=== PATIENT | male | born 1970 | race Caucasian/White ===

== ENCOUNTER 2017-06-23 08:47 | Observation (INO) | payer BC, OTHER, SELFPAY ==
[2017-06-23 09:25] LABS: #Basophils 0.1 thou/uL (0.0-0.2); #Eosinphils 0.3 thou/uL (0.0-0.7); #Monocytes 0.5 thou/uL (0.11-0.59); #Neutrophils 4.7 thou/uL (1.40-6.50); %Basophils 0.7 % (0.0-1.0); %Eosinophils 3.9 % (0.0-10.0); %Lymphocytes 26.1 % (21.0-51.0); %Monocytes 6.9 % (0.0-10.0); Mean Platelet Volume 8.2 fL (7.4-10.4); Red Blood Cell (RBC) Count 5.56 mill/uL (4.70-6.10); White Blood Cell (WBC) Count 7.5 thou/uL (4.8-10.8)
[2017-06-23 09:30] LABS: PTT 26.6 SEC (22.9-36.1); Prothrombin Time 12.9 SEC (12.0-14.7)
[2017-06-23 09:39] LABS: ALT (SGPT) 35 U/L (8-55); AST (SGOT) 21 U/L (5-34); Acetaminophen Less than 6.0 mcg/mL (10.0-30.0); Alkaline Phosphatase 67 U/L (40-150); Anion Gap 14 mmol/L (10-20); BUN (Urea Nitrogen) 14 mg/dL (8.9-20.6); Bilirubin, Total 0.6 mg/dL (0.2-1.2); Calc. Creatinine Clearance 0 mL/min (70-130); Calcium 9.7 mg/dL (7.8-10.44); Carbon Dioxide 27 mmol/L (22-29); Chloride 102 mmol/L (98-107); Estimated GFR-MDRD 72; Globulin 3.1 g/dL (2.4-3.5); Lipase 42 U/L (8-78); Protein, Total 7.2 g/dL (6.0-8.3); Salicylate Less than 8.0 mg/dL (15.0-30.0)
[2017-06-23 09:40] LABS: Troponin I Less than 0.010 ng/mL (< 0.028)
[2017-06-23 09:51] LABS: Bilirubin Negative (Negative); Blood, Urine Trace (Negative); Glucose, Urine (Dipstick) Negative (Negative); Ketone, Urine Negative (Negative); Nitrite Negative (Negative); Protein, Urine (Dipstick) Negative (Neg-Trace); Urobilinogen 0.2 mg/dL (0.2-1.0)
--- NOTE | 2017-06-23 09:54 | CT ---
CT HEAD WITHOUT CONTRAST: Technique: Multiple axial tomograms were obtained through the head without IV enhancement. History: Weakness and difficulty walking x two days. Comparison: Head CT 08-06-10. FINDINGS: Ventricles have normal size and position. No evidence of mass, infarct, or hemorrhage. Mild mucosal edema in the paranasal sinuses. IMPRESSION: No acute intracranial abnormality. POS: [facility]
[2017-06-23 10:00] LABS: Bacteria/HPF None Seen HPF (None Seen); RBC/HPF 0-3 HPF (0-3); Squamous Epithelial None Seen HPF (0-3); WBC/HPF None Seen HPF (0-3)
[2017-06-23 10:03] LABS: Amphetamine Not Detected (NotDetected); Methadone Not Detected (NotDetected); Methamphetamine Not Detected (NotDetected)
[2017-06-23 14:28] VITALS: BMI 34.5
[2017-06-23] MEDS ORDERED: Acetaminophen 325 MG TAB PO PRN (14:45)
[2017-06-23] MEDS ORDERED: Ondansetron ODT 4 MG TAB PO PRN (14:45)
[2017-06-23] MEDS ORDERED: Diabetic Tussin 200 MG/10 ML UDCUP PO PRN (14:45)
[2017-06-23] MEDS ORDERED: Senokot 8.6 MG TAB PO PRN (14:45)
[2017-06-23] MEDS ORDERED: Ondansetron HCl/PF 4 MG/2 ML Vial IVP PRN (14:45)
[2017-06-23] MEDS ORDERED: Sodium Chloride 0.65% Nasal 44 ML BOT EA NARE PRN (14:45)
[2017-06-23] MEDS ORDERED: Loperamide HCl 2 MG CAP PO PRN (14:45)
[2017-06-23] MEDS ORDERED: Loratadine 10 MG TAB PO PRN (14:45)
[2017-06-23] MEDS ORDERED: HYDROcodone/Acetaminophen 5/325 mg Tablet PO PRN (14:45)
[2017-06-23] MEDS ORDERED: Milk Of Magnesia 30 ML UDCUP PO PRN (14:45)
[2017-06-23] MEDS ORDERED: Mag-Al 1200 mg/1200 mg/30 ML UDCUP PO PRN (14:45)
[2017-06-23] MEDS ORDERED: Zolpidem Tartrate 5 MG TAB PO PRN (14:45)
[2017-06-23] MEDS ORDERED: Eucerin (Mineral Oil/Petrolatum,White) 30 gm Jar TOP PRN (14:45)
[2017-06-23] MEDS ORDERED: Fioricet 325/50/40 mg Tablet PO PRN (14:46)
--- NOTE | 2017-06-23 15:07 | HP ---
PRIMARY CARE PHYSICIAN: Michael Comer M.D. REASON FOR ADMISSION: Generalized weakness. HISTORY OF PRESENT ILLNESS: A 46-year-old male who has underlying history of dyslipidemia as well a s anxiety disorder who came to the emergency room at [facility] for evaluation of his generaliz ed weakness. Patient reports that all symptoms started Thursday, patient was feeling extrem avril exhausted. He took a nap Thursday and when he was waking up on Thursday evening, he was f eeling fatigued, he was not feeling normal. He was having unsteadiness. He was having slurred spee ch and he was incoherent, all of these symptoms were kept going on Thursday as well without any improv ement. Patient was not feeling normal and family member also noticed that something was going on. This morning, the patient was given more incoherent. The patient was not knowing what he was doing and he was not knowing what is going on as well. He also did not have any clue about Thursday afterno on and Thursday during daytime. He was not able to focus, so his symptoms were pretty much very vague and bizarre. With these symptoms, he presented to [facility] where they did a CT brain and it was normal. Subsequently, they transferred him to our hospital for further evaluation. REVIEW OF SYSTEMS: The following complete review of systems was negative, unless otherwise mentione d in the HPI or below: Constitutional: Weight loss or gain, ability to conduct usual activities. Skin: Rash, itching. Eyes: Double vision, pain. ENT/Mouth: Nose bleeding, neck stiffness, pain, tenderness. Cardiovascular: Palpitations, dyspnea on exertion, orthopnea. Respiratory: Shortness of breath, wheezing, cough, hemoptysis, fever or night sweats. Gastrointestinal: Poor appetite, abdominal pain, heartburn, nausea, vomiting, constipation, or diar rony. Genitourinary: Urgency, frequency, dysuria, nocturia. Musculoskeletal: Pain, swelling. Neurologic/Psychiatric: Anxiety, depression. Allergy/Immunologic: Skin rash, bleeding tendency. All other review of systems reviewed and negative except as mentioned in the HPI. PAST MEDICAL HISTORY: Fregoso's palsy and dyslipidemia. PAST SURGICAL HISTORY: Appendicectomy and rotator cuff repair. PAST PSYCHIATRIC HISTORY: Anxiety disorder. SOCIAL HISTORY: Patient drinks alcohol occasionally. He denies any smoking. He denies any illicit drug abuse. FAMILY HISTORY: No strong family history of premature coronary artery disease, stroke or cancer. ALLERGIES: No known drug allergies. CURRENT HOME MEDICATIONS: Lipitor 10 mg p.o. daily, Fioricet one tablet as needed, Xanax 1 mg p.o. at bedtime. EMERGENCY ROOM COURSE: Patient is given aspirin. PHYSICAL EXAMINATION: VITAL SIGNS: On arrival, blood pressure 137/96, pulse 75, respiratory rate 20, temperature 98.1, sa turation 100% on room air, weight 108.8 kilograms. GENERAL: Patient is currently alert, awake, no obvious acute distress. HEAD: Normocephalic, atraumatic. EYES: Pupils round, reactive to light. Extraocular muscles, seems like conjugate gaze palsy on the left side. ENT: Oropharynx within normal limits. Moist mucous membranes. No oral lesions. No pharyngeal jenny thema, no exudate. NECK: Supple. Range of motion is normal. No meningeal signs of irritation. LUNGS: Clear to auscultation without any rhonchi or rales. CARDIAC: S1, S2, regular without any murmur. ABDOMEN: Soft, bowel sounds present, nontender, nondistended. No organomegaly, no mass, no suprapu bic tenderness. BACK: Examination unremarkable, no CVA tenderness. EXTREMITIES: Upper extremity passive movements of all joints are normal. Lower extremity passive m ovements of all joints are normal. NEUROLOGIC: The patient is alert and oriented x3. Speech, normal. Motor 5/5 in all four limbs. S ensation bilaterally symmetrical. No cerebellar sign. No nystagmus. The patient is not able to mo ve his eyeball on the left side on both eyes. SKIN: No skin rash. PSYCHIATRIC: Normal affect. IMAGING AND LABORATORY DATA: EKG based on my review reveals normal sinus rhythm without any ischemi c changes. CT brain based on my review, no acute intracranial process. CBC: WBC 7.5, hemoglobin 1 6.4, platelet 247. INR 1.0. BMP: Sodium 139, potassium 4.0, chloride 102, carbon dioxide 27, BUN 14, creatinine 1.10, glucose 107, calcium 9.7. LFT: AST 21, ALT 35, alkaline phosphatase 67, album in 4.1. Cardiac enzymes negative. Ammonia 29. TSH 1.75. Urinalysis normal. Urine drug screen po sitive for barbiturates. Serum drug screen negative. ASSESSMENT AND PLAN/IMPRESSION: 1. Conjugate gaze palsy. 2. Dyslipidemia. 3. Generalized weakness. 4. Anxiety disorder. 5. History of Fregoso's palsy. 6. Obesity. 7. Migraine headache. 8. Deep venous thrombosis prophylaxis, not needed. 9. Gastrointestinal prophylaxis, Pepcid 20 mg p.o. b.i.d. PLAN: Observation to stroke floor, neuro check q.4 hourly. Neurology consult. MRI brain with contr ast, check lipid profile, homocysteine tomorrow. At this point, I am thinking that this patient mos t likely has underlying somatization and psychosomatic symptoms. Does not look like any clearcut ne urological event. We will obtain official opinion from Neurology. We will also consult PT, OT eval uation while in hospital as well. CODE STATUS: The patient is FULL CODE. The patient's is surrogate decision maker. Plan of ca re discussed with the patient and his at bedside.
[2017-06-23] MEDS ORDERED: Dexamethasone 4 mg/ml Vial SLOW IVP SCH (17:45)
[2017-06-23] MEDS ORDERED: Ketorolac Tromethamine 30 MG/ML VIAL IVP SCH (17:45)
[2017-06-23] MEDS ORDERED: Valproate Sodium 1,000 MG in Sodium Chloride 0.9% 100 ML IVPB SCH (18:00)
[2017-06-23] MEDS: Famotidine 20 MG TAB PO SCH (21:37)
--- NOTE | 2017-06-24 02:06 | CON ---
DATE OF CONSULTATION: 06/23/2017 CONSULTING PHYSICIAN: Hospitalist Service. IMPRESSION: Probable confusional migraine. PLAN: 1. MRI of the brain. 2. Migraine protocol. Mr. Mercado is a 46-year-old man with past history of migraine headaches. He had recent sinus surgery last week. On Thursday, he developed a headache and had a bit of confusion. On Thursday, the headach e continued and primarily the frontal head region. He continued to have some degree of confusion wi th some trouble remembering things that took place. He felt a bit unsteady on his feet. There was no lateralized weakness or numbness reported. The same symptoms continued on Thursday and he tried so me Fioricet for the pain, it did not get much relief. Today, he continued to have similar symptoms and decided to come in for an evaluation. He had unremarkable lab workup other than his drug screen showing positive for barbiturates due to his medication. No imaging has been done at this point. PAST MEDICAL HISTORY: As listed above. ALLERGIES: None reported. SOCIAL HISTORY: No illicit drug use. FAMILY HISTORY: Noncontributory. REVIEW OF SYSTEMS: Otherwise, negative. PHYSICAL EXAMINATION: GENERAL: He is a well-nourished middle-aged man, in no acute distress. HEENT: Pupils are equal and reactive. Conjunctivae clear. Oropharynx clear. NECK: Supple. EXTREMITIES: No cyanosis, clubbing or edema. NEUROLOGIC: He is alert and appropriate. His speech is fluent and clear. Cranial nerves were inta ct other than he could not volitionally look to the left or upward. Doll's head maneuver produced a conjugate leftward gaze. His motor exam showed symmetric strength in the extremities. There was n o tremor or dysmetria present. Sensation was intact to touch. Plantar responses were downgoing. G ait was not tested. No abnormal movements were seen. SUMMARY: This is a middle-aged man with ongoing headache with some variable confusion and unsteadin ess and a very atypical ophthalmalogic exam with a supranuclear gaze palsy. I suspect this can be m igraine in origin.
[2017-06-24] MEDS: Fioricet 325/50/40 mg Tablet PO PRN ×2 (03:17→10:16)
--- NOTE | 2017-06-24 07:15 | PDOC.PN ---
- Subjective Encounter Start Date: 06/24/17 Encounter Start Time: 07:13 Subjective: Generalized weakness -: No speech difficulty -: HALL stable - Objective Resuscitation Status: Resuscitation Status FULL:Full Resuscitation MAR Reviewed: Yes Vital Signs & Weight: Vital Signs (12 hours) Temp Pulse Resp BP Pulse Ox 06/24/17 04:00 61 H 118/67 06/24/17 00:00 98.1 F 74 18 116/63 94 L 06/23/17 20:00 98.4 F 74 18 127/82 95 Weight Weight 255 lb I&O: 06/23/17 06/24/17 06/25/17 06:59 06:59 06:59 Intake Total 908 Balance 908 Result Diagrams: 06/23/17 09:16 06/23/17 09:16 Phys Exam - Physical Examination Constitutional: NAD HEENT: moist MMs, sclera anicteric Neck: no nodes, no JVD Respiratory: no wheezing, no rales, no rhonchi, clear to auscultation bilateral Cardiovascular: RRR, no significant murmur Gastrointestinal: soft, non-tender, positive bowel sounds Musculoskeletal: no edema, pulses present Psychiatric: normal affect Skin: no rash, normal turgor Dx/Plan (1) Gaze palsy Code(s): H51.0 - PALSY (SPASM) OF CONJUGATE GAZE Status: Acute (2) Head ache Code(s): R51 - HEADACHE Status: Acute (3) Slurred speech Code(s): R47.81 - SLURRED SPEECH Status: Acute - Plan * Possible Migraine (supranuclear gaze palsy and HALL): CT brain: no acute issue, appreciate neuro input, f/u MRI, PT/OT, LDL 173 * check labs in AM
[2017-06-24] MEDS ORDERED: Polyethylene Glycol 3350 17 GM Packet PO SCH (09:00)
[2017-06-24] MEDS ORDERED: Atorvastatin Calcium 10 MG TAB PO SCH (09:00)
[2017-06-24] MEDS: Famotidine 20 MG TAB PO SCH (09:01)
--- NOTE | 2017-06-24 09:45 | MRI ---
BRAIN MRI WITH AND WITHOUT CONTRAST: Indications: Gaze palsy. Comparison: Head CT previous day. FINDINGS: The ventricular system is normal in size. There is no acute territory infarction, intracranial mass effect, or midline shift. No significant signal abnormalities of the brain parenchyma or evidence of pathologic intraaxial enhancement. There is prominent, scattered paranasal sinus mucosal inflammato ry thickening and retention cyst formation. IMPRESSION: No acute intracranial abnormalities. If there remain symptoms referable to the intraorbital contents, consider dedicated MRI of orbits fo r further assessment if clinically indicated. POS: [facility]
[2017-06-24 12:12] VITALS: TEMP 97.7
[2017-06-24 14:51] VITALS: BP 124/83
--- NOTE | 2017-06-25 13:14 | DIS ---
DATE OF ADMISSION: 06/23/2017 DATE OF DISCHARGE: 06/24/2017 PRIMARY DISCHARGE DIAGNOSES: 1. Gaze palsy. 2. Headache. 3. Slurred speech. HOSPITAL COURSE SUMMARY: This is a pleasant 46-year-old male who presented with gaze palsy, headach e, and slurred speech who was diagnosed with migraine. Neurology was consulted. A CT of the brain did not reveal any acute issues. MRI did not reveal any acute stroke. He was seen by physical laboratory assistant apy and occupational therapy and his LDL was found to be at 173. Neurology did not recommend any fu rther inpatient workup and he was discharged home on 06/24/2017. For discharge physical exam, labs and imaging, please refer to my progress note from 06/24/2017. DISCHARGE MEDICATIONS: Reviewed and reconciled. Please refer to his chart for details. DISCHARGE PLAN: 1. Discharge home on 06/24/2017. 2. Follow up with PCP in 1 week. 3. No changes to home medications.
== END 2017-06-24 13:59 | disposition home or self-care (01) ==
LOC: SCSER 08:47 → 2SE 12:42 → INTOOBSV 12:42
PROVIDERS: ADMIT Internal Medicine; ATTEND Internal Medicine
DX: H51.0 Palsy (spasm) of conjugate gaze (principal); G43.909 Migraine, unspecified, not intractable, without status migrainosus; R53.1 Weakness; R47.81 Slurred speech; G51.0 Bell's palsy; E78.5 Hyperlipidemia, unspecified; F41.9 Anxiety disorder, unspecified; E66.9 Obesity, unspecified; Z79.899 Other long term (current) drug therapy; Z68.34 Body mass index [BMI] 34.0-34.9, adult; Z90.49 Acquired absence of other specified parts of digestive tract; Z98.890 Other specified postprocedural states
CPT/HCPCS: 36415; 70450; 70553; 80053; 80061; 80306; 80307; 81003; 81015; 82140; 82553; 83090; 83690; 84443; 84484; 85025; 85610; 85730; 93005; 96374; 96375; G0378; G8987-GO-CJ; G8988-GO-CH; J1100; J1885; J7050

== ENCOUNTER 2021-03-11 18:30 | Outpatient (CLI) | payer OTHER | END 2021-03-11 18:31 | disposition home or self-care (01) | LOC: SLEEPLAB 18:30 | PROVIDERS: ATTEND Family Medicine | DX: G47.33 Obstructive sleep apnea (adult) (pediatric) (principal); G31.84 Mild cognitive impairment of uncertain or unknown etiology; R53.83 Other fatigue; K21.9 Gastro-esophageal reflux disease without esophagitis; R06.83 Snoring; F41.9 Anxiety disorder, unspecified; F32.9 Major depressive disorder, single episode, unspecified; G47.00 Insomnia, unspecified; E66.9 Obesity, unspecified; Z68.35 Body mass index [BMI] 35.0-35.9, adult | CPT/HCPCS: 95806 ==

== ENCOUNTER 2024-06-24 09:54 | Outpatient (CLI) | payer OTHER | END 2024-06-24 09:55 | disposition home or self-care (01) | LOC: SCSRAD 09:54 | PROVIDERS: ATTEND Family Medicine | DX: R06.02 Shortness of breath (principal) | CPT/HCPCS: 71046 ==

== ENCOUNTER 2025-05-31 08:06 | Outpatient (CLI) | payer OTHER | END 2025-05-31 08:07 | disposition home or self-care (01) | LOC: SCSMRI 08:06 | PROVIDERS: ATTEND Family Medicine | DX: R41.82 Altered mental status, unspecified (principal); J34.89 Other specified disorders of nose and nasal sinuses | CPT/HCPCS: 70551 ==